=== PATIENT | female | born 2000 | race Two or more races ===

== ENCOUNTER 2024-10-04 11:07 | Emergency (ER) | payer MEDICAID, SELFPAY ==
[2024-10-04 11:09] VITALS: BP 149/91; PULSE 90; RESP 22; TEMP 36.5; O2SAT 100
--- NOTE | 2024-10-04 11:29 | PC.NURSE ---
PT BROUGHT IN VIA EMS BEGAN HAVING CP LAST NIGHT AND CONTINUED INTO THIS MORNING. PT DESCRIBES IT A HEAVINESS. EMS GAVE NITRO AND ASA, DID A 12 LEAD THAT WAS NEGATIVE. PT HAS EXTENSIVE CARDIAC HX, HAS HAD MULTIPLE OPEN HEART SURGERIES. 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
[2024-10-04 11:32] VITALS: BP 125/81; PULSE 86; RESP 16; O2SAT 98
--- NOTE | 2024-10-04 11:36 | EKG_ITS ---
[facility] Test Date: 2024-10-04 Pat Name: ANAND GILL Department: Room: - Gender: Female Director Of Student Life: : 2000 Requested By: Palomo Triplett Order Number: [id number] Reading MD: Palomo Triplett Measurements Intervals [place] Rate: 80 P: 1 HI: 133 QRS: 153 QRSD: 106 T: 53 QT: 394 QTc: 456 Interpretive Statements SINUS RHYTHM INCOMPLETE RIGHT BUNDLE BRANCH BLOCK [90+ ms QRS DURATION, TERMINAL R IN V1/V2, 40+ ms S IN I/aVL/V4/V5/V6] Compared to ECG 01/05/2024 12:35:11 Incomplete right bundle-branch block now present Sinus tachycardia no longer present Right ventricular hypertrophy no longer present ST (T wave) deviation no longer present Myocardial infarct finding no longer present /store/S0/[id number]/ecg/[id number].pdf
--- NOTE | 2024-10-04 11:37 | XR_ITS ---
Examination: AP chest single view Technique: AP portable upright chest single view Exam date and time: October 04, 2024 at 1205 hrs. Comparison January 07, 2024 Indications: Onset chest pain today Findings: Normal heart size Median sternotomy wires and surgical clips with embolization material No lobar pneumonia or pulmonary edema Impression: No lobar pneumonia or pulmonary edema
--- NOTE | 2024-10-04 11:38 | EDNOTE_ITS ---
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 Onset of symptoms since last night as sudden onset of anterior chest pain, described as sharp, worse with pressing and coughing. Patient was also noted to be hyperventilating,. Patient symptoms severity is moderate. Denies any cough. Denies any fever denies any chest trauma or fall. Patient was given aspirin and nitro by EMS. Related Data Home Medications ?Medication ?Instructions ?Recorded ?Confirmed aspirin 81 mg chewable tablet 81 mg PO QDAY 01/04/24 01/04/24 enalapril maleate 5 mg tablet 5 mg PO QDAY 01/04/24 01/04/24 venlafaxine 37.5 mg 37.5 mg PO QDAY 01/04/24 01/04/24 tablet,extended release 24 hr Previous Rx's ?Medication ?Instructions ?Recorded hydroxyzine pamoate 50 mg capsule 50 mg PO TID PRN anxiety #30 caps 10/04/24 Allergies Allergy/AdvReac Type Severity Reaction Status Date / Time No Known Allergies Allergy Verified 10/04/24 11:28 Review of Systems Review of Systems Narrative Review of Systems: Review of system reviewed and within normal limits except mentioned in HPI ED Exam Narrative Physical exam: VITAL SIGNS: Reviewed. GENERAL APPEARANCE: Alert and interactive, follows commands, no acute distress, anxious HEAD AND FACE: Non-traumatic. ENT: PERRL, pink conjunctivitis, eyelid no trauma, Mucous membrane moist. NECK: Supple, nontender, no nuchal rigidity. CHEST: + tenderness, no crepitus, no paradoxical movement, no retractions. LUNGS: Clear, well ventilated, symmetric, no rales, no wheezing, no ronchi, no stridor, good breath sounds bilaterally. HEART: Regular rate, regular rhythm, no murmur, no gallops. ABDOMEN: Soft, positive bowel sounds, nondistended, no guarding, nontender, no rebound, no masses, RECTAL: Deferred. GENITAL: Deferred. NEUROLOGICAL: Gross motor function intact sensory function intact, Appropriate for age. MUSCULOSKELETAL: low back nontender, full range of motion. EXTREMITIES: Nontender, full range of motion. SKIN: Color pink, dry, no rash, no lacerations, no abrasions, no contusions. LYMPHATICS: Deferred. Course Quality Measures none Orders Category Date Time Status EKG (ED ONLY) *Do not use* NOW Care 10/04/24 11:37 Completed EKG (ED Only) Stat Exams 10/04/24 11:36 Draft XR chest 1V Stat Exams 10/04/24 11:37 Completed B-Type Natriuretic Peptide Stat Lab 10/04/24 12:58 Completed CBC Stat Lab 10/04/24 12:58 Completed Comprehensive Metabolic Panel Stat Lab 10/04/24 12:58 Completed D-Dimer Stat Lab 10/04/24 12:58 Completed HCG Qualitative,Urine Stat Lab 10/04/24 11:37 Ordered Partial Thromboplastin Time Stat Lab 10/04/24 12:58 Completed Prothrombin Time with INR Stat Lab 10/04/24 12:58 Completed Troponin I Stat Lab 10/04/24 12:58 Completed Urinalysis, C/S if Indicated Stat Lab 10/04/24 11:37 Ordered LORazepam [Ativan] Med 10/04/24 11:38 Discontinued 0.5 mg PO X1 ONE Vital Signs Vital signs: Vital Signs Temperature 97.7 F 10/04/24 11:09 Pulse Rate 90 10/04/24 11:09 Respiratory Rate 22 H 10/04/24 11:09 Blood Pressure 149/91 H 10/04/24 11:09 Pulse Oximetry (%) 100 10/04/24 11:09 Oxygen Delivery Method Nasal Cannula 10/04/24 11:09 Oxygen Flow Rate 2 10/04/24 11:09 Chest Pain MDM Narrative MDM Narrative:: 24-year-old female patient with significant 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 Onset of symptoms since last night as sudden onset of anterior chest pain, described as sharp, worse with pressing and coughing. Patient was also noted to be hyperventilating,. Patient symptoms severity is moderate. Denies any cough. Denies any fever denies any chest trauma or fall. Patient was given aspirin and nitro by EMS. Laboratory workup all came back unremarkable. Cardiac workup also came back unremarkable. Patient's symptoms completely gone after patient received Ativan p.o. Patient data External records reviewed:: None Clinical information provided by:: none Social determinants that could affect healthcare access:: none Patient has the following chronic illnesses:: Congenital heart anomaly How is presenting disease/condition affected by chronic disease/condition?: exacerbated by Evaluation data The following diagnostics were reviewed and interpreted by me:: lab results, radiology exam(s) and EKG tracing(s) Lab and/or radiology exams considered but not ordered:: None Interpretation Summary: EKG as interpreted by me showed normal sinus rhythm, ventricular rate of 80 bpm, no ST segment elevation depression noted. Cardiac workup all came back unremarkable troponin is normal. I personally reviewed and interpreted the x- ray of this patient. There is no acute abnormalities found, no infiltrates no pneumothorax no hemothorax normal chest x-ray. Review of other structures was without significant abnormal findings also. I additionally reviewed the radiologist report and agree with the interpretation. Medications / Prescriptions Medications or Prescriptions considered but not ordered:: None Medication administrations:: Medication Administration History Discontinued Medications Lorazepam (Lorazepam 0.5 Mg Tablet) 0.5 mg PO X1 ONE Stop: 10/04/24 11:39 Last Admin: 10/04/24 12:02 Dose: 0.5 mg Documented By: DO Ativan p.o. Consultations Consultation(s) initiated? (list below): No Diagnosis Chest Pain Differential Diagnosis: pneumothorax, chest pain and other (anxiety) Most likely diagnosis given after review of the tests above:: smxiety Admission Indicated Admission indicated?: not indicated Explain why admission is indicated or not indicated:: Stable Admission Request Was there a request for admission?: No Disposition Plan Disposition Plan: Discharge Discharge Attestation Discharge Attestation: The patient and all family members were given an opportunity to ask questions and understood the discharge instructions. Discharge instructions specifically effects, indications for sooner follow up or return to the emergency department, and the expected course of current diagnosis. Patient condition: Stable Discharge Plan Plan Patient Disposition: HOME (Self Care) Disposition Comment: stable Prescriptions/Referrals Prescriptions/Med Rec: New hydroxyzine pamoate 50 mg capsule 50 mg PO TID PRN (Reason: anxiety) Qty: 30 0RF No Action enalapril maleate 5 mg Tablet 5 mg PO QDAY aspirin 81 mg Tablet,Chewable 81 mg PO QDAY venlafaxine 37.5 mg Tablet Extended Release 24hr 37.5 mg PO QDAY Referrals: Cal Cage [Primary Care Provider] - In 1 week Problem List Clinical Impression: Anxiety Patient/Caregiver Discharge Instructions Discharge Activity: activity as tolerated Education Materials: ED Anxiety Reaction Additional Instructions: Thank you for the opportunity for serving you today. You are stable for discharged . You are advised to: Follow-up with your PCP in 1 to 2 days Return to ED for worsening of symptoms Increase oral fluids Take medication as prescribed Print Language: Greenlandic Stand Alone Forms: Hannah Award Info., Patient Portal Info Letter PA/INSURANCE APPRAISER Supervising Physician PA/INSURANCE APPRAISER Supervising Physician: Md Maite
[2024-10-04] MEDS: LORazepam 0.5 MG TABLET PO (12:02)
[2024-10-04 12:13] VITALS: BP 123/84; PULSE 75; RESP 16; TEMP 36.8; O2SAT 99
[2024-10-04 13:08] LABS: Basophils % (Auto) 0 % (0-2.5); Eosinophils % (Auto) 0 % (0-10); Hemoglobin 12.1 g/dL (12.0-16.0); Immature Granulocytes % (Auto) 0 % (0-0); Immature Granulocytes Auto 0.01 Thou/mm3 (0.00-0.00); Lymphocytes # (Auto) 0.9 Thou/mm3 (1.0-4.8); Lymphocytes % (Auto) 20 % (10-50); Mean Corpuscular HGB Conc 33.6 g/dl (31.0-37.0); Mean Corpuscular Hemoglobin 26.5 pg (25.0-35.0); Mean Corpuscular Volume 79 fL (80-100); Monocytes # (Auto) 0.4 Thou/mm3 (0.0-0.8); Monocytes % (Auto) 9 % (0-12); Neutrophils # (Auto) 3.3 Thou/mm3 (1.8-7.7); Neutrophils % (Auto) 70 % (37-80); Nucleated Red Blood Cell % 0 /100 WBC (0); Platelet Count 187 Thou/mm3 (140-440); RDW Standard Deviation 40.2 fL (36.4-46.3); Red Blood Count 4.57 Miln/mm3 (4.00-5.20); White Blood Count 4.7 Thou/mm3 (3.6-11.0)
[2024-10-04 13:24] LABS: INR 1.1 (0.9-1.3); Partial Thromboplastin Time 29.1 Seconds (22.0-36.0); Prothrombin Time 12.3 Seconds (9.0-12.2)
[2024-10-04 13:28] LABS: B-Type Natriuretic Peptide 24 pg/mL (0-100)
[2024-10-04 13:29] LABS: Alanine Aminotransferase 22 U/L (10-49); Albumin, Serum 4.6 gm/dL (3.5-5.0); Albumin/Globulin Ratio 1.6 (1.2-2.2); Alkaline Phosphatase 67 U/L (46-116); Anion Gap 8 (7-16); Aspartate Amino Transferase 25 U/L (0-34); BUN/Creatinine Ratio 26 Ratio (12-20); Bilirubin,Total 0.9 mg/dL (0.3-1.2); Blood Urea Nitrogen 18 mg/dL (9-23); Calcium 9.9 mg/dL (8.3-10.6); Calcium (Corrected) 9.9 mg/dL (8.5-10.1); Carbon Dioxide 22.3 mMol/L (20.0-31.0); Chloride 109 mMol/L (98-107); Creatinine (Component) 0.7 mg/dL (0.6-1.3); Globulin 2.8 gm/dL (2.3-3.5); Glucose 93 mg/dL (74-106); Osmolality,Calculated 279 (275-295); Sodium 139 mMol/L (136-145); Total Protein 7.4 gm/dL (5.7-8.2); Troponin I < 0.020 ng/mL (0.0-0.045); eGFR > 60 See Note
[2024-10-04 13:42] LABS: D-Dimer < 250 ng/mL (<600)
[2024-10-04 14:12] VITALS: BP 106/73; PULSE 78; RESP 16; TEMP 37.2; O2SAT 98
[2024-10-04 16:09] VITALS: BP 115/83; PULSE 80; RESP 20; TEMP 36.9; O2SAT 98
[2024-10-04 16:53] LABS: Collection Type, Urine Clean Catch
[2024-10-04 16:55] VITALS: BP 114/80; PULSE 78; RESP 20; TEMP 36.6; O2SAT 100
[2024-10-04 16:59] LABS: HCG Qualitative,Urine Negative
[2024-10-04 17:00] LABS: Bilirubin,Urine Negative (Negative); Blood,Urine Negative (Negative); Clarity,Urine Clear (Clear/Hazy); Color,Urine Yellow (Lt Yel-Yel); Culture Indicated,Urine Not Indicated; Glucose, Urine Negative (Negative); Ketones,Urine Negative (Negative); Leukocyte Esterase,Urine Negative (Negative); Nitrite,Urine Negative (Negative); Protein,Urine Negative (Neg - Trace); RBC,Urine < 1 /hpf (0-3); Squamous Epithelial Cell,Urine < 1 /hpf (0-5); Urobilinogen,Urine Negative mg/dL (0.0-1.0); WBC,Urine < 1 /hpf (0-5)
== END 2024-10-04 16:54 | disposition home or self-care (01) ==
PROVIDERS: Nurse Practitioner Family; Emergency Provider Emergency Medicine; PCP Physician Assistant
DX: F41.9 Anxiety disorder, unspecified (principal); R07.89 Other chest pain; I45.10 Unspecified right bundle-branch block
CPT/HCPCS: 36415; 71045; 80053; 81001; 81025; 83880; 84484; 85025; 85379; 85610; 85730; 93005; 99283; A9270

== ENCOUNTER 2025-06-04 15:32 | Emergency (ER) | payer MEDICAID, SELFPAY ==
[2025-06-04 15:45] VITALS: BP 118/73; PULSE 82; RESP 16; TEMP 37; O2SAT 98
--- NOTE | 2025-06-04 15:48 | XR_ITS ---
Examination: CT abdomen and pelvis without contrast. Coronal 3-D reconstructions. Sagittal 2-D reconstructions. Date and time of exam:June 04, 2025, 1731 hours INDICATIONS: Right flank pain beginning one week ago CTDI: vol (mGy): 4.69 DLP: (mGycm): 251 Technique: Axial images of the abdomen have been obtained, 3 mm slice thickness Intravenous contrast material has not been administered. Low dose protocols were performed. One or more of the following dose reduction techniques were used; automated exposure control, adjustment of the mA and/or KV according to patient size, use of iterative reconstruction technique. Findings: Partial visualization possible stent in the inferior vena cava No visualized liver or splenic lesion No gallstones. No pancreatic or adrenal mass. No renal or ureteral calculi, no hydronephrosis IVC stent versus filter Normal appendix No bowel obstruction Anteverted uterus Bladder intact Osseous structures intact IMPRESSION: No renal or ureteral calculi, no hydronephrosis Normal appendix No bowel obstruction diverticulitis or free air. No bladder mass or bladder calculi
--- NOTE | 2025-06-04 15:48 | PD.EDRME ---
Rapid Medical Screening Exam RME Arrival date/time: 06/04/25 15:32 25-year-old female with no known medical history presents to the emergency room with a chief complaint of right-sided flank pain and lower abdominal pain x 1 week that has progressively gotten worse in the last 2 days I have greeted and performed a focused initial assessment of this patient. A comprehensive ED assessment and evaluation of the patient, analysis of all test results, and completion of the medical decision making process will be conducted by additional ED providers. Chief Complaint: General Adult/Misc Complain Vital signs: Vital Signs Temperature 98.6 F 06/04/25 15:45 Pulse Rate 82 06/04/25 15:45 Respiratory Rate 16 06/04/25 15:45 Blood Pressure 118/73 06/04/25 15:45 Pulse Oximetry (%) 98 06/04/25 15:45 Oxygen Delivery Method Room Air 06/04/25 15:45 Vital signs reviewed by provider: Yes
[2025-06-04 16:10] LABS: Collection Type, Urine Clean Catch
[2025-06-04 16:12] LABS: Basophils # (Auto) 0.0 Thou/mm3 (0.0-0.2); Basophils % (Auto) 1 % (0-2.5); Eosinophils # (Auto) 0.0 Thou/mm3 (0.0-0.5); Eosinophils % (Auto) 1 % (0-10); Hematocrit 37.5 % (36.0-46.0); Hemoglobin 12.0 g/dL (12.0-16.0); Immature Granulocytes Auto 0.01 Thou/mm3 (0.00-0.00); Lymphocytes # (Auto) 1.7 Thou/mm3 (1.0-4.8); Lymphocytes % (Auto) 29 % (10-50); Mean Corpuscular HGB Conc 32.0 g/dl (31.0-37.0); Mean Corpuscular Hemoglobin 25.2 pg (25.0-35.0); Mean Corpuscular Volume 79 fL (80-100); Monocytes # (Auto) 0.5 Thou/mm3 (0.0-0.8); Monocytes % (Auto) 10 % (0-12); Neutrophils # (Auto) 3.4 Thou/mm3 (1.8-7.7); Neutrophils % (Auto) 60 % (37-80); Nucleated Red Blood Cell # 0.00 Thou/mm3 (0.00-0.00); Nucleated Red Blood Cell % 0 /100 WBC (0); Platelet Count 174 Thou/mm3 (140-440); RDW Standard Deviation 43.3 fL (36.4-46.3); Red Blood Count 4.76 Miln/mm3 (4.00-5.20); White Blood Count 5.7 Thou/mm3 (3.6-11.0)
[2025-06-04 16:16] LABS: HCG Qualitative,Urine Negative
[2025-06-04 16:28] LABS: Bacteria,Urine Rare; Bilirubin,Urine Negative (Negative); Blood,Urine Trace (Negative); Clarity,Urine Clear (Clear/Hazy); Color,Urine Yellow (Lt Yel-Yel); Glucose, Urine Negative (Negative); Ketones,Urine 1+ (Negative); Leukocyte Esterase,Urine Negative (Negative); Nitrite,Urine Negative (Negative); PH,Urine 5.5 (5.0-7.0); Protein,Urine Negative (Neg - Trace); RBC,Urine 3 /hpf (0-3); Specific Gravity,Urine 1.033 (1.001-1.035); Squamous Epithelial Cell,Urine 6 /hpf (0-5); Urobilinogen,Urine 2.0 mg/dL (0.0-1.0); WBC,Urine 1 /hpf (0-5)
[2025-06-04 16:32] LABS: Alanine Aminotransferase 21 U/L (10-49); Albumin, Serum 4.9 gm/dL (3.5-5.0); Albumin/Globulin Ratio 1.7 (1.2-2.2); Alkaline Phosphatase 72 U/L (46-116); Anion Gap 12 (7-16); Aspartate Amino Transferase 26 U/L (0-34); BUN/Creatinine Ratio 24 Ratio (12-20); Bilirubin,Total 0.6 mg/dL (0.3-1.2); Blood Urea Nitrogen 22 mg/dL (9-23); Calcium 9.7 mg/dL (8.3-10.6); Calcium (Corrected) 9.7 mg/dL (8.5-10.1); Carbon Dioxide 22.5 mMol/L (20.0-31.0); Chloride 105 mMol/L (98-107); Creatinine (Component) 0.9 mg/dL (0.6-1.3); Estimated Creatinine Clearance 64.6 mL/min (>60); Globulin 2.9 gm/dL (2.3-3.5); Glucose 95 mg/dL (74-106); Lipase 40 U/L (12-53); Osmolality,Calculated 280 (275-295); Potassium 3.8 mMol/L (3.4-5.1); Sodium 139 mMol/L (136-145); Total Protein 7.8 gm/dL (5.7-8.2); eGFR > 60 See Note
[2025-06-04] MEDS: ONDANSETRON ODT 4 MG TABRAP PO (16:35)
[2025-06-04] MEDS: IBUPROFEN TAB 600 MG TABLET PO (16:36)
--- NOTE | 2025-06-04 19:12 | EDNOTE_ITS ---
ED General RME/HPI General Chief complaint: General Adult/Misc Complain Stated complaint: SEVERE R) KIDNEY PAIN 08/15 Time Seen by Provider: 06/04/25 17:03 Arrival date/time: 06/04/25 15:32 RME / HPI RME / HPI narrative: 25-year-old female with no known medical history presents to the emergency room with a chief complaint of right-sided flank pain and lower abdominal pain x 1 week that has progressively gotten worse in the last 2 days. Patient denies any other complaints no medication was taken prior to arrival. Related Data Home Medications ?Medication ?Instructions ?Recorded ?Confirmed aspirin 81 mg chewable tablet 81 mg PO QDAY 01/04/24 0 01/04/24 enalapril maleate 5 mg tablet 5 mg PO QDAY 01/04/24 venlafaxine 37.5 mg 37.5 mg PO QDAY 01/04/24 tablet,extended release 24 hr Previous Rx's ?Medication ?Instructions ?Recorded hydroxyzine pamoate 50 mg capsule 50 mg PO TID PRN anx iety #30 caps 10/04/24 naproxen 500 mg tablet (Naprosyn) 500 mg PO BID PRN pa in #20 tabs 06/04/25 Allergies Allergy/AdvReac Type Severity Reaction Status Date / Time No Known Allergies Allergy Verified 06/04/25 15:34 Review of Systems Review of Systems Narrative Review of Systems: Review of system reviewed and within normal limits except mentioned in HPI ED Exam Narrative Physical exam: VITAL SIGNS: Reviewed. GENERAL APPEARANCE: Alert and interactive, follows commands, no acute distress, HEAD AND FACE: Non-traumatic. ENT: PERRL, pink conjunctivitis, eyelid no trauma, Mucous membrane moist. NECK: Supple, nontender, no nuchal rigidity. CHEST: No tenderness, no crepitus, no paradoxical movement, no retractions. LUNGS: Clear, well ventilated, symmetric, no rales, no wheezing, no ronchi, no stridor, good breath sounds bilaterally. HEART: Regular rate, regular rhythm, no murmur, no gallops. ABDOMEN: Soft, positive bowel sounds, nondistended, no guarding, nontender, no r ebound, no masses, right flank tenderness RECTAL: Deferred. GENITAL: Deferred. NEUROLOGICAL: Gross motor function intact sensory function intact, Appropriate for age. MUSCULOSKELETAL: low back nontender, full range of motion. EXTREMITIES: Nontender, full range of motion. SKIN: Color pink, dry, no rash, no lacerations, no abrasions, no contusions. LYMPHATICS: Deferred. Course Quality Measures none Orders Category Date Time Status CT abdomen pelvis wo con Stat Exams 06/04/25 15:48 Completed CBC Stat Lab 06/04/25 16:04 Completed CMP [Comprehensive Metabolic Panel] Stat Lab 06/04/25 16:04 Completed HCG Qualitative,Urine Stat Lab 06/04/25 15:50 Completed Lipase Stat Lab 06/04/25 16:04 Completed UA [Urinalysis] Stat Lab 06/04/25 15:50 Completed Urine Culture Stat Lab 06/04/25 15:50 Received Ibuprofen Tab [Motrin Tab] Med 06/04/25 15:48 Discontinued 600 mg PO X1 ONE Ondansetron Odt [Zofran Odt] Med 06/04/25 15:48 Discontinued 4 mg PO X1 ONE Vital Signs Vital signs: Vital Signs Temperature 98.6 F 06/04/25 15:45 Pulse Rate 82 06/04/25 15:45 Respiratory Rate 16 06/04/25 15:45 Blood Pressure 118/73 06/04/25 15:45 Pulse Oximetry (%) 98 06/04/25 15:45 Oxygen Delivery Method Room Air 06/04/25 15:45 Discharge Plan Plan Patient Disposition: HOME (Self Care) Discharge Disposition comment: Stable Prescriptions/Referrals Prescriptions/Med Rec: New naproxen [Naprosyn] 500 mg tablet 500 mg PO BID PRN (Reason: pain) Qty: 20 0RF No Action enalapril maleate 5 mg Tablet 5 mg PO QDAY aspirin 81 mg Tablet,Chewable 81 mg PO QDAY venlafaxine 37.5 mg Tablet Extended Release 24hr 37.5 mg PO QDAY hydroxyzine pamoate 50 mg capsule 50 mg PO TID PRN (Reason: anxiety) Qty: 30 0RF Referrals: No Primary/Family,Physician [Primary Care Provider] - In 1 week Problem List Clinical Impression: Flank pain Patient/Caregiver Discharge Instructions Discharge Activity: activity as tolerated Education Materials: ED Flank Pain, Uncertain Cause Additional Instructions: Thank you for the opportunity for serving you today. You are stable for discharged . You are advised to: Follow-up with your PCP in 1 to 2 days Return to ED for worsening of symptoms Increase oral fluids Take medication as prescribed Print Language: [place] Stand Alone Forms: Hannah Award Info., Patient Portal Info Letter NATALIA/CINDY Supervising Physician NATALIA/CINDY Supervising Physician: MD Dominik [facility] Narrative [facility] hospital course: 25-year-old female with no known medical history presents to the emergency room with a chief complaint of right-sided flank pain and lower abdominal pain x 1 week that has progressively gotten worse in the last 2 days. Patient denies any other complaints no medication was taken prior to arrival. Patient's laboratory workup came back normal, CT scan of the abdomen and pelvis also came back unremarkable. Results discussed with the patient. Patient's pain is muscular in nature. Patient appears nontoxic and hemodynamically stable .Decision to discharge the patient. The patient/family was given an opportunity to ask questions and understood their discharge instructions. Discharge instructions specifically included follow up provider and time frame, current and/or new medications and possible side effects, indications for sooner follow up or return to the emergency department, and the expected course of current diagnosis. Patient reports feeling better as well and giving evidence of significant clinical improvement, I believe patient is now a candidate for discharge. Lab Interpretation Lab(s) interpretation(s): See results [facility] Medication Administration(s) Medication Administration History Discontinued Medications Ibuprofen (Ibuprofen Tab 600 Mg Tablet) 600 mg PO X1 ONE Stop: 06/04/25 15:49 Last Admin: 06/04/25 16:36 Dose: 600 mg Documented By: Ondansetron HCl (Ondansetron Odt 4 Mg Tabrap) 4 mg PO X1 ONE; Protocol Stop: 06/04/25 15:49 Last Admin: 06/04/25 16:35 Dose: 4 mg Documented By: Diagnosis Differential diagnosis: Flank pain renal colic kidney stone UTI Most likely dx, and/or detailed dx discussion: Plan pain Dispositon Disposition: Discharge Home
[2025-06-04 19:15] VITALS: RESP 16
== END 2025-06-04 19:15 | disposition home or self-care (01) ==
PROVIDERS: Nurse Practitioner Family; Emergency Provider Emergency Medicine
DX: R10.31 Right lower quadrant pain (principal); R10.11 Right upper quadrant pain
CPT/HCPCS: 36415; 74176; 80053; 81001; 81025; 83690; 85025; 87086; 99283; Q0162; A9270